=== PATIENT | male | born 1975 | race Caucasian/White ===

== ENCOUNTER 2016-10-03 16:36 | Emergency (ER) | payer MEDICAID ==
[~2016-10-03] VITALS: Ht 172.7 cm; Wt 77.1 kg
--- NOTE | 2016-10-03 17:01 | NUR ---
CALLED PT. TO TRIAGE, NO ANSWER
[2016-10-03 17:06] VITALS: BP 132/82
--- NOTE | 2016-10-03 18:20 | NUR ---
Patient to bed 05.
--- NOTE | 2016-10-03 18:24 | NUR ---
Dr. Strong evaluating patient at bedside.
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
--- NOTE | 2016-10-03 19:08 | NUR ---
Pt report given to VIRIDIANA DIALLO. Transfer of care at this time.
--- NOTE | 2016-10-03 19:20 | NUR ---
RECEIVED REPORT FROM YOEL OGLESBY RN. ASSUMED PT CARE.
[2016-10-03 20:22] VITALS: BP 129/79
== END 2016-10-03 20:23 | disposition home or self-care (01) ==
LOC: MED 16:36 → EDBD 16:36 → MED 20:23
DX: M54.9 Dorsalgia, unspecified (principal); F17.200 Nicotine dependence, unspecified, uncomplicated; Z71.6 Tobacco abuse counseling